=== PATIENT | female | born 1990 | race Caucasian/White ===

== ENCOUNTER 2023-09-27 15:22 | Emergency (ER) | payer BC, SELFPAY ==
[2023-09-27 15:27] VITALS: BP 112/73
[2023-09-27 15:53] LABS: COVID-19 Antigen Negative (Negative)
--- NOTE | 2023-09-27 16:30 | ED.GENMED ---
History of Present Illness
<ASAEL Blevins - Last Filed: 09/27/23 16:37>
General
Chief Complaint: Cold/Flu/URI Symptoms
Source: patient
Exam Limitations: none
Time Seen by Provider: 09/27/23 16:15
Nursing documentation reviewed up to this point in time: agreed with
Travel History
Have you had any contact with someone who has COVID-19?: No
Do you have any symptoms of coronavirus? Fever > 100 degrees, chills, cough, shortness of breath, sore throat, loss of taste or smell, muscle aches, or headache?: No
History of Present Illness
History of Present Illness:
Patient is a 33 year old female who presents for URI symptoms x 5 days. Patient reports she has sore throat, headache, self reported fever, cough, congestion, burning sensation in her throat/chest and dizziness since symptoms started. She is taking
ibuprofen and acetaminophen with no improvement. Patient started taking Musinex with improvement. Patient also tried tea with honey and lemon/jessica water with no improvement. Patient reports her sons were all sick recently with what she believes to
be the flu. Patient denies recent travel. Patient denies chest pain, palpitations, dyspnea.
Past History
<ASAEL Blevins - Last Filed: 09/27/23 16:37>
Past History
ED Past Medical History: Hypothyroidism
ED Past Surgical History:
Social History
Tobacco: Non-smoker
Personal:
Living: with family
Employment: Employed
Family History
Family History: Other
Phy Exam
<ASAEL Blevins - Last Filed: 09/27/23 16:37>
General Physical Exam
General Presentation: well appearing
General age: appears stated age
General Skin: warm
General Habitus: normal
General Mental: alert
General Hydration: appears well hydrated
ENT Exam
ENT Exam: TM's normal, neck supple and normocephalic
Cardiovascular Exam
Cardiovascular Exam: regular rate/rhythm
Pulmonary Exam
Pulmonary Exam: lungs clear
Course
<ASAEL Blevins - Last Filed: 09/27/23 16:37>
Orders/Labs/Results
Orders:
Orders
09/27/23 15:31
CR Chest - 2 Views Urgent
Comment:
Reason For Exam: cough
09/27/23 15:33
COVID-19 Antigen Urgent
Source: Nasal Swab
Influenza A+B Rapid Molecular Urgent
FRANCIS Source: Nasal Swab
Specimen Description:
Date Specimen was Collected: 09/27/23
Time Specimen was Collected: 15:31
Vital Signs
Initial and Last Documented VS:
Initial Vital Signs
Temp Pulse Resp BP Pulse Ox
98.1 F 82 20 112/73 99
09/27/23 15:27 09/27/23 15:27 09/27/23 15:27 09/27/23 15:27 09/27/23 15:27
Last Documented Vital Signs
Temp Pulse Resp BP Pulse Ox
98.1 F 82 20 112/73 99
09/27/23 15:27 09/27/23 15:27 09/27/23 15:27 09/27/23 15:27 09/27/23 15:27
<Saida Harmon MD - Last Filed: 10/19/23 09:52>
Orders/Labs/Results
Orders:
Orders
09/27/23 15:31
CR Chest - 2 Views Urgent
Comment:
Reason For Exam: cough
09/27/23 15:33
COVID-19 Antigen Urgent
Source: Nasal Swab
Influenza A+B Rapid Molecular Urgent
FRANCIS Source: Nasal Swab
Specimen Description:
Date Specimen was Collected: 09/27/23
Time Specimen was Collected: 15:31
Vital Signs
Initial and Last Documented VS:
Initial Vital Signs
Temp Pulse Resp BP Pulse Ox
98.1 F 82 20 112/73 99
09/27/23 15:27 09/27/23 15:27 09/27/23 15:27 09/27/23 15:27 09/27/23 15:27
Last Documented Vital Signs
Temp Pulse Resp BP Pulse Ox
98.1 F 82 20 112/73 99
09/27/23 15:27 09/27/23 15:27 09/27/23 15:27 09/27/23 15:27 09/27/23 15:27
<Saida Harmon MD - Last Filed: 10/19/23 09:52>
*Critical Care Note
Total Time (30-74mins, 75-104mins- exclusive of procedures): Not Applicable
ED Attending Note
<ASAEL Blevins - Last Filed: 09/27/23 16:37>
-
Portions of this chart may have been created with voice recognition software.� Occasional wrong word or��sound alike� substitutions may have occurred due to the inherent limitations of voice recognition software.
<Saida Harmon MD - Last Filed: 10/19/23 09:52>
ED Attending Note
Patient seen and examined by attending physician: Yes
I performed the substantive portion of visit, reviewed & personally made and approve the management plan that is documented in note by myself or SARAH.: Yes
ED Attending Note:
33-year-old female presents emergency department with fatigue, body aches, cough, sore throat for the last few days. She is not vaccinated against flu. No cp, no sob, no abd pain or vomiting. On exam, aaao times three, speaks in ful lsent easily,
lungs cta, abd soft, nt, o/p clear.
. Patient presents to the Emergency Department with cough, sore throat, body aches
Number and Complexity of Problems Addressed at the Encounter
� Chronic conditions affecting care:
� Acute Exacerbation and/or Progression of Chronic Illness:
� Differential Diagnosis includes: But not limited to COVID, influenza, RSV, viral URI, etc.
Amount and/or Complexity of Data to be Reviewed and Analyzed
� I performed an independent evaluation of and my interpretation is:
EKG:
CT:
Xrays: Read by radiology NAD
Laboratory Studies: COVID-negative influenza
Other:
� Review of other/old records reveals:
� Clinical information was obtained by an independent historian:
� Prescriptions/Medications Considered but not given:
� Further testing considered but not performed:
Risk of Complications and/or Morbidity or Mortality of Patient Management
� Social determinants of health affecting care:
� Discussion with other providers (PCP, Hospitalists, Consultants, etc):
� Escalation of care including admission/observation vs risk of discharge considered: Discussed with patient importance of follow-up and reasons return to the ER. She is not a Tamiflu candidate given onset of symptoms was
greater then 48 hours.
Discharge Plan
Departure
Patient Disposition: Home (Routine Discharge)
Date of Disposition: 09/27/23
Time of Disposition: 16:56
Patient with high blood pressure during this ER visit?: No
Condition: Good
Discharge Problem:
Influenza
Instructions: Flu, Adult ED
Prescriptions:
No Action
levothyroxine 50 MCG tablet
50 mcg PO DAILY
Patient Comments:
pt unsure of the dose but thinks this is it
[id number] acid [ Multi] 1 EACH tablet
1 ea PO DAILY
Referrals:
Benita Dumont [employer] [Family Provider] - As needed
Activity Restrictions/Additional Instructions:
IF YOU DEVELOP SEVERE HEADACHE, THE LIGHT HURTS YOUR EYES, REPEATED VOMITING, TROUBLE BREATHING, ABDOMINAL PAIN, CHEST PAIN, OR OTHER WORRISOME SIGNS, PLEASE RETURN TO THE ER IMMEDIATELY.
Interventions
Interventions:
*Risk Screen - Suicide Last Done: 09/27/23 15:27
*General Assessment Last Done: 09/27/23 15:27
*Neglect/Abuse Screening Last Done: 09/27/23 15:27
ED- Fall Risk Assessment Last Done: 09/27/23 17:05
*ED COVID-19 Vaccine History Last Done: 09/27/23 17:05
*Nursing Disposition Last Done: 09/27/23 17:05
ED- Pulmonary Assessment Last Done: 09/27/23 16:40
Discharge Date and Time
Discharge Date/Time: 09/27/23 17:05
== END 2023-09-27 17:05 | disposition home or self-care (01) ==
LOC: EMR 15:22
PROVIDERS: EMERGENCY PHYSICIAN Emergency Medicine; FAMILY PHYSICIAN Nurse Practitioner Family
DX: J10.1 Influenza due to other identified influenza virus with other respiratory manifestations (principal); Z11.52 Encounter for screening for COVID-19
CPT/HCPCS: 99284; 71046; 87502; 87811